=== PATIENT | male | born 1990 | race Caucasian/White ===

== ENCOUNTER 2018-05-17 08:55 | Emergency (ER) | payer BC ==
[2018-05-17 09:27] VITALS: BP 109/66
[2018-05-17 09:51] LABS: Influenza A Molecular NEGATIVE (Negative); Influenza B Molecular NEGATIVE (Negative)
--- NOTE | 2018-05-17 09:54 | UC ---
Respiratory Complaint HPI - HPI Summary HPI Summary: 27 yo male with cough/runny nose/sore throat and head x <48 hours has felt feverish and had chills nausea no vomiting no CP or SOB +stephenson + myalgias strong FH asthma he has not been diagnosed with asthma but has used inhalers before - History of Current Complaint Chief Complaint: UCRespiratory Stated Complaint: ST,COUGH,STEPHENSON,BODY ACHES,NAUSEA Time Seen by Provider: 05/17/18 09:31 Hx Obtained From: Patient Onset/Duration: Gradual Onset, Lasting Days Timing: Constant Severity Initially: Mild Severity Currently: Moderate Pain Intensity: 5 Pain Scale Used: 0-10 Numeric Character: Cough: Nonproductive Aggravating Factors: Nothing Alleviating Factors: Nothing Associated Signs And Symptoms: Positive: Fever - arian, Chills, Nasal Congestion - Allergies/Home Medications Allergies/Adverse Reactions: Allergies Allergy/AdvReac Type Severity Reaction Status Date / Time amoxicillin Allergy Unknown Verified 05/17/18 09:15 Reaction Details Penicillins Allergy Unknown Verified 05/17/18 09:15 Reaction Details Home Medications: Home Medications Dm/PE/Acetaminophen/Doxylamine [Daytime-Nighttime Cold-Flu] 2 each PO Q4H PRN [History Confirmed 05/17/18] PMH/Surg Hx/FS Hx/Imm Hx Previously Healthy: Yes Respiratory History: Bronchitis - Surgical History Surgical History: None - Family History Known Family History: Positive: Hypertension, Respiratory Disease - asthma - Social History Alcohol Use: Occasionally Substance Use Type: None Smoking Status (MU): Never Smoked Tobacco Review of Systems All Other Systems Reviewed And Are Negative: Yes Constitutional: Positive: Fever - arian, Chills, Fatigue Skin: Positive: Negative Eyes: Positive: Negative ENT: Positive: Sore Throat, Nasal Discharge, Sinus Congestion Respiratory: Positive: Cough Cardiovascular: Positive: Negative Gastrointestinal: Positive: Nausea Genitourinary: Positive: Negative Motor: Positive: Negative Neurovascular: Positive: Negative Musculoskeletal: Positive: Myalgia Neurological: Positive: Headache Psychological: Positive: Negative Physical Exam Triage Information Reviewed: Yes Appearance: Well-Appearing, No Pain Distress, Well-Nourished Vital Signs: Initial Vital Signs Temp 96.9 F 05/17/18 09:16 Pulse 93 05/17/18 09:16 Resp 16 05/17/18 09:16 BP 84/40 05/17/18 09:16 Pulse Ox 100 05/17/18 09:16 Vital Signs Reviewed: Yes Eyes: Positive: Conjunctiva Clear ENT: Positive: Hearing grossly normal, Pharyngeal erythema, Nasal congestion, Nasal drainage, TMs normal, Uvula midline. Negative: Tonsillar swelling, Tonsillar exudate, Trismus, Muffled voice, Hoarse voice, Dental tenderness, Sinus tenderness Neck: Positive: Supple, Nontender, No Lymphadenopathy Respiratory: Positive: Lungs clear, Normal breath sounds, No respiratory distress, No accessory muscle use Cardiovascular Exam: Normal Cardiovascular: Positive: RRR, No Murmur. Negative: Tachycardia, Bradycardia Abdomen Description: Positive: Nontender, No Organomegaly, Soft. Negative: CVA Tenderness (R), CVA Tenderness (L) Musculoskeletal: Positive: ROM Intact, No Edema Neurological: Positive: Alert Psychological Exam: Normal Skin Exam: Normal Respiratory Course/Dx - Course Course Of Treatment: influenza (-) however his room mate is (+) for influenza A - Differential Dx/Diagnosis Provider Diagnosis: Influenza Discharge - Sign-Out/Discharge Documenting (check all that apply): Patient Departure All imaging exams completed and their final reports reviewed: No Studies - Discharge Plan Condition: Stable Disposition: HOME Patient Education Materials: Influenza (ED) Forms: *Work Release - Billing Disposition and Condition Condition: STABLE Disposition: Home
== END 2018-05-17 10:33 | disposition home or self-care (01) ==
LOC: UCCORT 08:55
DX: J11.1 Influenza due to unidentified influenza virus with other respiratory manifestations (principal); Z88.0 Allergy status to penicillin
CPT/HCPCS: 99202; G0463